=== PATIENT | female | born 1940 | race Caucasian/White ===

== ENCOUNTER 2018-09-19 15:53 | Emergency (ER) | payer OTHER, MEDICAID ==
[~2018-09-19] VITALS: Ht 154.9 cm; Wt 96.4 kg
[2018-09-19 15:58] VITALS: BP 179/81
--- NOTE | 2018-09-19 17:50 | NUR ---
PT AMBULATED TO BED 12
--- NOTE | 2018-09-19 18:00 | NUR ---
77 Y F BIB SELF C/O NAUSEA, CONSTANT RUQ ABD PAIN RADIATES TO RIGHT FLANK AND BACK X 09/17/18. +BURNING URINATION, PATIENT STATES IT MAY BE DIVERTICULTITIS FROM EATING STRAWBERRIES AND POPCORN, PATIENT IS AA0X4, VSS, BED IS DOWN, LOW, LOCKED, BED RAIL X 1, ERMD NOTIFIED AND IS AWARE OF PATIENT STATUS. BS145 HX: DIABETES, HTN, THYROIDECTOMY, TUBAL LIGATION, NEUROPATHY, HIGH CHOLESTEROL RX: METFORMIN, VITAMIN D3, DICOFENAC, GABAPENTIN, ATORVASTATIN, CERTIZINE, LISINOPRIL, LEVOTHYROXINE, MYRBETRIQ, FLUTICASONE, HYDROCORTISONE RECTAL CREAM
[2018-09-19 18:28] LABS: APPEARANCE,URINE CLEAR (CLEAR); BILIRUBIN,URINE NEGATIVE (NEGATIVE); BLOOD, URINE NEGATIVE (NEGATIVE); COLOR,URINE YELLOW (YELLOW); LEUKOCYTE ESTERASE ,URINE TRACE (NEGATIVE); NITRITE, URINE NEGATIVE (NEGATIVE); UGLUCOSE NEGATIVE (NEGATIVE)
[2018-09-19 18:34] LABS: RBC,URINE NONE SEEN /HPF (0-5); WBC,URINE 0-5 (RARE) /HPF (0-5)
--- NOTE | 2018-09-19 19:15 | NUR ---
GOT REPORT FROM DELANEY RN, PT AAO X4, GCS 15, RESPIATIONS EVEN AND UNLABORED, BL LUNG CLEAR. SKIN WARM/PINK/DRY, +PMSC. ABDOMEN SOFT, NON DISTENDED, ACTIVE BOWEL SOUND X4. VSS, NO ACUTE DISTRESS AT THIS TIME. DR. SHRESTHA AT BEDSIDE EVALUATIONG PT. WILL CONTINUE TO MONITOR
[2018-09-19] MEDS ORDERED: NACL 0.9% 1,000 ML IV ONE (19:23)
[2018-09-19] MEDS ORDERED: KETOROLAC 30 MG/ML VIAL IM ONE (19:25)
--- NOTE | 2018-09-19 19:58 | NUR ---
PER D/[facility] IV[facility]
[2018-09-19 20:04] LABS: BASOPHILS % (AUTO) 0.6 % (0.0-2.0); EOSINOPHILS # (AUTO) 0.2 K/uL (0-0.4); EOSINOPHILS % (AUTO) 4.2 % (0.0-4.0); HEMATOCRIT 40.7 % (36-48); HEMOGLOBIN 13.1 g/dL (12.0-16.0); LYMPHOCYTES # (AUTO) 1.5 K/uL (2.5-16.5); MEAN CORPUSCULAR HEMOGLOBIN 28 pg (27-31); MEAN CORPUSCULAR HGB CONC 32 g/dL (33-37); MONOCYTES # (AUTO) 0.6 K/uL (0.8-1.0); MONOCYTES % (AUTO) 10.3 % (1.7-9.3); NEUTROPHILS # (AUTO) 3.1 K/uL (1.8-7.7); NEUTROPHILS % (AUTO) 56.9 % (42.2-75.2); PLATELET COUNT (AUTO) 137 K/uL (140-450); RED BLOOD CELL COUNT(AUTO) 4.68 MIL/uL (4.20-5.40); RED CELL DISTRIBUTION WIDTH 14.4 % (11.6-13.7); WHITE BLOOD COUNT (AUTO) 5.5 K/uL (4.8-10.8)
[2018-09-19 20:05] LABS: ANION GAP 7.2 (8-16); CARBON DIOXIDE 32.9 mmol/L (21-32); CHLORIDE 106 mmol/L (98-107); CREATININE 0.7 mg/dL (0.6-1.3); GLUCOSE 105 mg/dL (74-106); POTASSIUM 4.1 mmol/L (3.5-5.1); SODIUM SERUM 142 mmol/L (136-145); UREA NITROGEN, BLOOD 14 mg/dL (7-18)
[2018-09-19 20:12] LABS: ALBUMIN 3.6 g/dL (3.4-5.0); ASPARTATE AMINOTRANSFERASE 12 U/L (15-37); LIPASE 90 U/L (73-393); TOTAL BILIRUBIN 0.4 mg/dL (0.0-1.0)
[2018-09-19 21:45] VITALS: BP 147/55
--- NOTE | 2018-09-19 21:45 | NUR ---
Patient discharged with v/s stable. Written and verbal after care instructions given and explained. Patient alert, oriented and verbalized understanding of instructions. Ambulatory with to car. All questions addressed prior to discharge. ID band removed. Patient advised to follow up with PMD. Rx of TYLENOL 500 ML given. Patient educated on indication of medication including possible reaction and side effects. Opportunity to ask questions provided and answered.
== END 2018-09-19 21:45 | disposition home or self-care (01) ==
LOC: MED 15:53
DX: R10.11 Right upper quadrant pain (principal); E11.9 Type 2 diabetes mellitus without complications; I10 Essential (primary) hypertension; Z88.5 Allergy status to narcotic agent; Z88.2 Allergy status to sulfonamides
CPT/HCPCS: 36415; 74176; 80053; 81001; 83690; 85025; 96372; 99284; J1885

== ENCOUNTER 2023-03-05 11:22 | Emergency (ER) | payer OTHER ==
[~2023-03-05] VITALS: Ht 160 cm; Wt 96.2 kg
[2023-03-05 12:01] VITALS: BP 125/63; PULSE 78; RESP 20; TEMP 98; O2SAT 99
[2023-03-05] MEDS ORDERED: ACETAMINOPHEN EXTRA STRENGTH 500 MG TAB PO ONE (12:40)
[2023-03-05] MEDS ORDERED: KETOROLAC 15 MG/ML VIAL IM ONE (12:40)
[2023-03-05 12:51] VITALS: O2SAT 99
[2023-03-05] MEDS ORDERED: ACET-10509 PO (14:00)
[2023-03-05] MEDS ORDERED: DICL100G5 TP (14:00)
--- NOTE | 2023-03-05 14:48 | NUR ---
FEELING BETTER , PROVIDERAT BS TO DISCUSS TEST RESLTS AND DC INSTRUCTION
== END 2023-03-05 14:48 | disposition home or self-care (01) ==
LOC: MED 11:22
DX: M13.812 Other specified arthritis, left shoulder (principal); M13.822 Other specified arthritis, left elbow; M13.842 Other specified arthritis, left hand; G89.29 Other chronic pain; Z88.2 Allergy status to sulfonamides; Z88.5 Allergy status to narcotic agent; Z79.899 Other long term (current) drug therapy
CPT/HCPCS: 73030; 73080; 73130; 96372; 99284; J1885

== ENCOUNTER 2023-05-22 07:05 | Inpatient (IN) | payer OTHER ==
[~2023-05-22] VITALS: Ht 160 cm; Wt 108.9 kg
[~2023-05-22 07:05] MED LIST: ACET-10509 PO; DICL100G32 TP
[2023-05-22 07:26] VITALS: BP 137/71; PULSE 92; RESP 17; TEMP 97.6; O2SAT 95
[2023-05-22] MEDS ORDERED: NACL 0.9% 1,000 ML IV ONE (07:35)
[2023-05-22] MEDS ORDERED: ONDANSETRON 4 MG/2 ML VIAL IVP ONE (07:35)
[2023-05-22 08:05] LABS: BASOPHILS % (AUTO) 0.3 % (0.0-2.0); EOSINOPHILS % (AUTO) 0.1 % (0.0-4.0); HEMATOCRIT 41.9 % (36-48); HEMOGLOBIN 13.8 g/dL (12.0-16.0); MEAN CORPUSCULAR HEMOGLOBIN 28 pg (27-31); MEAN CORPUSCULAR HGB CONC 33 g/dL (33-37); MEAN CORPUSCULAR VOLUME 85.8 fL (80-94); MONOCYTES # (AUTO) 0.3 K/uL (0.8-1.0); NEUTROPHILS # (AUTO) 8.3 K/uL (1.8-7.7); NEUTROPHILS % (AUTO) 86.6 % (42.2-75.2); PLATELET COUNT (AUTO) 168 K/uL (140-450); RED BLOOD CELL COUNT(AUTO) 4.89 MIL/uL (4.20-5.40); RED CELL DISTRIBUTION WIDTH 14.6 % (11.6-13.7); WHITE BLOOD COUNT (AUTO) 9.6 K/uL (4.8-10.8)
[2023-05-22 08:30] LABS: ALANINE AMINOTRANSFERASE 20 U/L (12-78); ALKALINE PHOSPHATASE 89 U/L (50-136); ANION GAP 13.4 (8-16); ASPARTATE AMINOTRANSFERASE 19 U/L (15-37); CALCIUM 9.2 mg/dL (8.5-10.1); CARBON DIOXIDE 27.2 mmol/L (21-32); CHLORIDE 105 mmol/L (98-107); CREATININE 0.8 mg/dL (0.6-1.3); GLUCOSE 216 mg/dL (74-106); LIPASE 20 U/L (16-77); POTASSIUM 3.6 mmol/L (3.5-5.1); SODIUM SERUM 142 mmol/L (136-145); TOTAL BILIRUBIN 0.7 mg/dL (0.0-1.0); TOTAL PROTEIN, SERUM 7.9 g/dL (6.4-8.2); UREA NITROGEN, BLOOD 20 mg/dL (7-18)
[2023-05-22] MEDS ORDERED: METOCLOPRAMIDE 10 MG/2 ML INJ VIAL IVP ONE (08:45)
[2023-05-22] MEDS ORDERED: MORPHINE SULFATE 4 MG/ML SYR IVP ONE (08:45)
[2023-05-22] MEDS ORDERED: diphenhydrAMINE 50 MG/ML VIAL IVP ONE (08:45)
[2023-05-22] MEDS ORDERED: PANTOPRAZOLE 40 MG INJ VIAL IVP ONE (09:30)
[2023-05-22 09:44] LABS: APPEARANCE,URINE CLEAR (CLEAR); BILIRUBIN,URINE NEGATIVE (NEGATIVE); BLOOD, URINE NEGATIVE (NEGATIVE); COLOR,URINE YELLOW (YELLOW); LEUKOCYTE ESTERASE ,URINE NEGATIVE (NEGATIVE); NITRITE, URINE NEGATIVE (NEGATIVE); PROTEIN,URINE NEGATIVE (NEGATIVE); UGLUCOSE 3+ (NEGATIVE); UROBILINOGEN,URINE 0.2 EU/dL (0.2 - 1)
[2023-05-22 09:55] LABS: BACTERIA,URINE OCCASSIONAL /HPF (None Seen); RBC,URINE 0-5 /HPF (0-5); SQUAMOUS EPITHELIAL CELL,UR 0-3 (FEW) /LPF (0-3 (FEW)); WBC,URINE 0-5 /HPF (0-5)
[2023-05-22] MEDS ORDERED: AMLO10TA PO (10:37)
[2023-05-22] MEDS ORDERED: FAMO-92 PO (10:37)
[2023-05-22] MEDS ORDERED: LORA10TA19 PO (10:37)
[2023-05-22] MEDS ORDERED: GABA100C PO (10:37)
[2023-05-22] MEDS ORDERED: LISI40TA12 PO (10:37)
[2023-05-22] MEDS ORDERED: SYN.1 PO (10:37)
[2023-05-22] MEDS ORDERED: ONDANSETRON 4 MG/2 ML VIAL IVP PRN (11:50)
[2023-05-22] MEDS ORDERED: MORPHINE SULFATE 2 MG/ML SYR IVP PRN (11:50)
[2023-05-22] MEDS ORDERED: HYDROcodone/APAP 5/325 MG 1 TAB TAB PO PRN (11:50)
[2023-05-22] MEDS ORDERED: INSULIN LISPRO SLIDING SCALE 100 UNITS/ML VIAL SUBQ PRN (11:55)
[2023-05-22] MEDS ORDERED: DEXTROSE 50% 50 ML SYR IVP PRN (11:55)
[2023-05-22] MEDS ORDERED: ASPIRIN 325 MG TAB PO SCH (11:58)
[2023-05-22] MEDS: carvediloL 6.25 MG TAB PO SCH ×2 (12:24→21:46)
[2023-05-22 15:00] VITALS: RESP 18; O2SAT 99
[2023-05-22 16:00] VITALS: BP 125/72; PULSE 72; RESP 18; TEMP 97.8; O2SAT 99
[2023-05-22] MEDS: BLOOD GLUCOSE MONITORING 1 DEV DEV FS SCH ×2 (17:30→21:48)
[2023-05-22 20:00] VITALS: BP 127/60; PULSE 59; PULSE 61; RESP 18; TEMP 97.8; O2SAT 92; O2SAT 99
[2023-05-22] MEDS: PANTOPRAZOLE 40 MG INJ VIAL IVP SCH (21:56)
[2023-05-23] VITALS: BP 108/78; PULSE 58; PULSE 59; RESP 18; TEMP 97.5; O2SAT 92
[2023-05-23 04:00] VITALS: BP 122/60; PULSE 47; PULSE 57; RESP 18; TEMP 98.8; O2SAT 92
[2023-05-23] MEDS ORDERED: LEVOTHYROXINE 0.088 MG TAB PO SCH (06:30)
[2023-05-23] MEDS: BLOOD GLUCOSE MONITORING 1 DEV DEV FS SCH ×3 (06:56→17:28)
[2023-05-23 07:03] LABS: BASOPHILS % (AUTO) 0.5 % (0.0-2.0); EOSINOPHILS # (AUTO) 0.2 K/uL (0-0.4); EOSINOPHILS % (AUTO) 2.4 % (0.0-4.0); HEMATOCRIT 33.5 % (36-48); LYMPHOCYTES # (AUTO) 1.3 K/uL (2.5-16.5); LYMPHOCYTES % (AUTO) 16.4 % (20.5-51.1); MEAN CORPUSCULAR HEMOGLOBIN 28 pg (27-31); MEAN CORPUSCULAR HGB CONC 33 g/dL (33-37); MEAN CORPUSCULAR VOLUME 86.4 fL (80-94); MONOCYTES # (AUTO) 0.8 K/uL (0.8-1.0); MONOCYTES % (AUTO) 10.6 % (1.7-9.3); NEUTROPHILS # (AUTO) 5.4 K/uL (1.8-7.7); NEUTROPHILS % (AUTO) 70.1 % (42.2-75.2); PLATELET COUNT (AUTO) 134 K/uL (140-450); RED BLOOD CELL COUNT(AUTO) 3.88 MIL/uL (4.20-5.40); RED CELL DISTRIBUTION WIDTH 14.9 % (11.6-13.7); WHITE BLOOD COUNT (AUTO) 7.7 K/uL (4.8-10.8)
[2023-05-23 07:06] LABS: ANION GAP 9.4 (8-16); CALCIUM 8.4 mg/dL (8.5-10.1); CARBON DIOXIDE 27.4 mmol/L (21-32); CHLORIDE 109 mmol/L (98-107); CREATININE 0.7 mg/dL (0.6-1.3); GLUCOSE 110 mg/dL (74-106); POTASSIUM 3.8 mmol/L (3.5-5.1); SODIUM SERUM 142 mmol/L (136-145); UREA NITROGEN, BLOOD 18 mg/dL (7-18)
[2023-05-23 07:17] LABS: CHOL/HDL RATIO 2.3 (1-4.5); THYROID STIMULATING HORMONE 0.66 uIU/mL (0.34-3.74)
[2023-05-23 08:00] VITALS: BP 116/54; PULSE 48; PULSE 51; RESP 18; TEMP 97.9; O2SAT 96
[2023-05-23] MEDS ORDERED: lisinopriL 20 MG TAB PO SCH (09:00)
[2023-05-23] MEDS: PANTOPRAZOLE 40 MG INJ VIAL IVP SCH (09:10)
[2023-05-23 12:00] VITALS: BP 105/54; PULSE 54; RESP 18; TEMP 97.3; O2SAT 97
[2023-05-23] MEDS ORDERED: DOCUSATE SODIUM 100 MG GELCAP PO SCH (12:42)
[2023-05-23 16:00] VITALS: BP 134/63; PULSE 54; PULSE 55; RESP 18; TEMP 97.9; O2SAT 97
[2023-05-23] MEDS ORDERED: PANT40EC PO (16:00)
[2023-05-23] MEDS ORDERED: DOCU-299 PO (16:02)
[2023-05-23 16:49] VITALS: BP 105/54; PULSE 54; RESP 18; TEMP 97.3
== END 2023-05-23 19:20 | disposition home or self-care (01) | DRG 392 ==
LOC: MED 07:05 → MTU 11:51
PROVIDERS: ADMIT Internal Medicine; ATTEND Internal Medicine
DX: K44.9 Diaphragmatic hernia without obstruction or gangrene (principal); E03.9 Hypothyroidism, unspecified; I10 Essential (primary) hypertension; K21.9 Gastro-esophageal reflux disease without esophagitis; R73.03 Prediabetes; K42.9 Umbilical hernia without obstruction or gangrene; Z88.5 Allergy status to narcotic agent; Z88.2 Allergy status to sulfonamides; Z79.899 Other long term (current) drug therapy
CPT/HCPCS: 36415; 71045; 80048; 80053; 81001; 82948; 83690; 84443; 84484; 85025; 93005; 96361; 96374; 96375; 99285; C9113; J1200; J1815; J2270; J2405; J2765

== ENCOUNTER 2023-06-08 17:30 | Emergency (ER) | payer OTHER ==
[~2023-06-08] VITALS: Ht 160 cm; Wt 95.7 kg
[~2023-06-08 17:30] MED LIST changes: +AMLO10TA PO; +DOCU-299 PO; +GABA100C PO; +LISI40TA12 PO; +LORA10TA19 PO; +PANT40EC PO; +SYN.1 PO
[2023-06-08 17:53] VITALS: BP 132/61; PULSE 80; RESP 20; TEMP 98; O2SAT 100
[2023-06-08] MEDS ORDERED: NACL 0.9% 1,000 ML IV ONE (18:30)
[2023-06-08 18:40] LABS: BASOPHILS % (AUTO) 0.5 % (0.0-2.0); EOSINOPHILS # (AUTO) 0.2 K/uL (0-0.4); EOSINOPHILS % (AUTO) 1.7 % (0.0-4.0); HEMATOCRIT 40.1 % (36-48); HEMOGLOBIN 13.1 g/dL (12.0-16.0); LYMPHOCYTES # (AUTO) 0.9 K/uL (2.5-16.5); LYMPHOCYTES % (AUTO) 10.2 % (20.5-51.1); MEAN CORPUSCULAR HEMOGLOBIN 28 pg (27-31); MEAN CORPUSCULAR HGB CONC 33 g/dL (33-37); MEAN CORPUSCULAR VOLUME 86.7 fL (80-94); MONOCYTES # (AUTO) 0.5 K/uL (0.8-1.0); MONOCYTES % (AUTO) 5.1 % (1.7-9.3); NEUTROPHILS # (AUTO) 7.4 K/uL (1.8-7.7); NEUTROPHILS % (AUTO) 82.5 % (42.2-75.2); PLATELET COUNT (AUTO) 180 K/uL (140-450); RED BLOOD CELL COUNT(AUTO) 4.63 MIL/uL (4.20-5.40)
[2023-06-08 18:45] VITALS: TEMP 98
[2023-06-08 18:57] LABS: APPEARANCE,URINE CLEAR (CLEAR); BILIRUBIN,URINE NEGATIVE (NEGATIVE); BLOOD, URINE NEGATIVE (NEGATIVE); COLOR,URINE YELLOW (YELLOW); LEUKOCYTE ESTERASE ,URINE 1+ (NEGATIVE); NITRITE, URINE NEGATIVE (NEGATIVE); PROTEIN,URINE TRACE (NEGATIVE); UGLUCOSE NEGATIVE (NEGATIVE); UROBILINOGEN,URINE 0.2 EU/dL (0.2 - 1)
[2023-06-08 19:01] LABS: ALANINE AMINOTRANSFERASE 21 U/L (12-78); ALBUMIN 3.7 g/dL (3.4-5.0); ALKALINE PHOSPHATASE 80 U/L (50-136); ANION GAP 9.1 (8-16); ASPARTATE AMINOTRANSFERASE 20 U/L (15-37); CALCIUM 8.8 mg/dL (8.5-10.1); CARBON DIOXIDE 27.7 mmol/L (21-32); CHLORIDE 106 mmol/L (98-107); CREATININE 0.7 mg/dL (0.6-1.3); GLUCOSE 135 mg/dL (74-106); LIPASE 9 U/L (16-77); POTASSIUM 3.8 mmol/L (3.5-5.1); SODIUM SERUM 139 mmol/L (136-145); TOTAL BILIRUBIN 0.6 mg/dL (0.0-1.0); TOTAL PROTEIN, SERUM 7.2 g/dL (6.4-8.2); UREA NITROGEN, BLOOD 18 mg/dL (7-18)
[2023-06-08 19:06] LABS: RBC,URINE 0 /HPF (0-5)
[2023-06-08 19:07] LABS: WBC,URINE 0-5 /HPF (0-5)
[2023-06-08 19:08] LABS: BACTERIA,URINE FEW /HPF (None Seen); MUCUS,URINE None Seen /LPF (None Seen); SQUAMOUS EPITHELIAL CELL,UR 0-3 (FEW) /LPF (0-3 (FEW))
[2023-06-08 19:51] VITALS: O2SAT 100
[2023-06-08 19:52] VITALS: BP 133/58; PULSE 79; RESP 14
[2023-06-08] MEDS ORDERED: ONDA-188 SL (20:47)
[2023-06-08 21:00] VITALS: O2SAT 99
[2023-06-08] MEDS ORDERED: CEPH-588 PO (21:55)
== END 2023-06-08 21:24 | disposition home or self-care (01) ==
LOC: MED 17:30
DX: R42 Dizziness and giddiness (principal); E86.0 Dehydration; R11.10 Vomiting, unspecified; K44.9 Diaphragmatic hernia without obstruction or gangrene; E03.9 Hypothyroidism, unspecified; I11.9 Hypertensive heart disease without heart failure; E11.9 Type 2 diabetes mellitus without complications; K21.9 Gastro-esophageal reflux disease without esophagitis; Z79.4 Long term (current) use of insulin; Z79.899 Other long term (current) drug therapy; Z88.2 Allergy status to sulfonamides; Z88.5 Allergy status to narcotic agent
CPT/HCPCS: 36415; 80053; 81001; 83690; 84484; 85025; 87086; 93005; 96360; 99284; J7030

== ENCOUNTER 2023-10-12 16:46 | Emergency (ER) | payer OTHER ==
[~2023-10-12] VITALS: Ht 160 cm; Wt 95.7 kg
[~2023-10-12 16:46] MED LIST changes: +CEPH-588 PO; +ONDA-188 SL
[2023-10-12 17:09] VITALS: BP 159/78; PULSE 72; RESP 19; TEMP 99.1; O2SAT 96
[2023-10-12] MEDS: predniSONE 20 MG TAB PO ONE (19:11)
[2023-10-12 19:51] LABS: FLU A ANTIGEN negative (NEGATIVE); FLU B ANTIGEN NEGATIVE (NEGATIVE)
[2023-10-12] MEDS ORDERED: ALBUTEROL SULFATE/IPRATROPIU 3 ML SOL IH ONE (20:28)
[2023-10-12 20:31] VITALS: PULSE 64; RESP 20; O2SAT 95
[2023-10-12] MEDS: ALBUTEROL SULFATE/IPRATROPIU 3 ML SOL IH ONE (20:31)
[2023-10-12] MEDS ORDERED: PRED20TA5 PO (21:06)
[2023-10-12] MEDS ORDERED: AMOX1TAB8 PO (21:06)
[2023-10-12] MEDS ORDERED: ALBU0.0912 IH (21:06)
[2023-10-12] MEDS ORDERED: AZIT250T4 PO (21:06)
== END 2023-10-12 21:10 | disposition home or self-care (01) ==
LOC: MED 16:46
DX: J40 Bronchitis, not specified as acute or chronic (principal); J98.01 Acute bronchospasm; Z20.822 Contact with and (suspected) exposure to COVID-19; I10 Essential (primary) hypertension; E11.9 Type 2 diabetes mellitus without complications; K21.9 Gastro-esophageal reflux disease without esophagitis; Z79.899 Other long term (current) drug therapy; E03.9 Hypothyroidism, unspecified; Z88.2 Allergy status to sulfonamides; Z88.5 Allergy status to narcotic agent
CPT/HCPCS: 71045; 87426; 87804; 94640; 99284; J7512